=== PATIENT | female | born 1985 ===

== ENCOUNTER 2019-03-19 14:41 | Outpatient (CLI) | payer OTHER ==
[~2019-03-19] VITALS: Ht 162.6 cm; Wt 59.9 kg
== END 2019-03-19 15:00 | disposition home or self-care (01) ==
LOC: OFIC 805 14:41
DX: K21.0 Gastro-esophageal reflux disease with esophagitis (principal); M54.2 Cervicalgia

== ENCOUNTER 2020-06-22 20:21 | Emergency (ER) | payer OTHER ==
[~2020-06-22] VITALS: Ht 162.6 cm; Wt 61.2 kg
== END 2020-06-22 22:20 | disposition home or self-care (01) ==
LOC: ER 20:21
DX: M54.2 Cervicalgia (principal); M54.89 Other dorsalgia; M54.5 Low back pain

== ENCOUNTER 2024-07-07 13:26 | Outpatient (CLI) | payer OTHER | END 2024-07-07 13:27 | disposition home or self-care (01) | LOC: PRENATAL 13:26 | PROVIDERS: ATTEND Obstetrics & Gynecology Maternal & Fetal Medicine | DX: O36.80X0 Pregnancy with inconclusive fetal viability, not applicable or unspecified (principal); Z36.82 Encounter for antenatal screening for nuchal translucency; O99.891 Other specified diseases and conditions complicating pregnancy; O99.019 Anemia complicating pregnancy, unspecified trimester; O09.529 Supervision of elderly multigravida, unspecified trimester; Z14.8 Genetic carrier of other disease; Z3A.12 12 weeks gestation of pregnancy ==

== ENCOUNTER 2024-08-31 08:09 | Outpatient (CLI) | payer OTHER | END 2024-08-31 08:11 | disposition home or self-care (01) | LOC: PRENATAL 08:09 | PROVIDERS: ATTEND Obstetrics & Gynecology Maternal & Fetal Medicine | DX: O44.00 Complete placenta previa NOS or without hemorrhage, unspecified trimester (principal); O09.529 Supervision of elderly multigravida, unspecified trimester; Z3A.19 19 weeks gestation of pregnancy ==

== ENCOUNTER → 2024-11-25 07:15 | Outpatient (CLI) | payer OTHER | END | disposition home or self-care (01) | LOC: PRENATAL 07:15 | PROVIDERS: ATTEND Obstetrics & Gynecology Maternal & Fetal Medicine | DX: O26.849 Uterine size-date discrepancy, unspecified trimester (principal); O36.8199 Decreased fetal movements, unspecified trimester, other fetus; O99.019 Anemia complicating pregnancy, unspecified trimester; O09.529 Supervision of elderly multigravida, unspecified trimester; Z3A.32 32 weeks gestation of pregnancy ==

== ENCOUNTER 2025-01-05 14:45 | Inpatient (IN) | payer OTHER ==
[~2025-01-05] VITALS: Ht 162.6 cm; Wt 3.2 kg
[2025-01-05 15:49] LABS: HEMATOCRIT 42.3 % (36.0-45.00); HEMOGLOBIN 14.4 g/dL (12.0-15.00); MEAN CELL VOLUME 94.4 fL (80.00-100.00); MEAN CORPUSCULAR HEMOGLOBIN 32.2 pg (27.00-32.0); MEAN CORPUSCULAR HGB CONC 34.1 g/dl (32.0-36.0); RED BLOOD COUNT 4.48 M/uL (4.00-6.00)
[2025-01-05 15:58] LABS: PLATELET COUNT 112 K/uL (150-450)
[2025-01-05 16:11] LABS: INR < 0.93; PARTIAL THROMBOPLASTIN TIME 27.3 SECONDS (22.0-34.0); PROTHROMBIN TIME 9.9 SECONDS (9.0-11.5)
[2025-01-05 16:15] LABS: PH,URINE 6.5 (5.0-8.0); URINE APPEARANCE Clear; URINE BACTERIA 12.2 uL (0.0-1933); URINE BILIRRUBIN Negative (NEGATIVE); URINE BLOOD Negative; URINE COLOR Yellow; URINE EPITHELIAL CELLS 27.6 uL (0.0-38.8); URINE KETONE Negative (NEGATIVE); URINE LEUKOCYTE Negative; URINE NITRATE Negative; URINE PROTEIN Negative (NEGATIVE); URINE RBC 5.3 uL (0.0-20.8); URINE WBC 3.6 uL (0.0-23.2)
[2025-01-05 16:15] LABS: ALBUMIN 2.8 gm/dL (3.4-5.0); BILIRUBIN TOTAL 0.42 mg/dL (0.3-1.2); CALCIUM 8.6 mg/dL (8.5-10.1); CREATININE SERUM 0.59 mg/dL (0.55-1.02); GFR 112.89; GLOBULINA 3.3 G/DL (2.4-3.5); POTASSIUM 3.78 mEq/L (3.5-5.1); TOTAL PROTEIN 6.1 gm/dL (6.4-8.2)
[2025-01-05 16:29] LABS: URINE GLUCOSE 250 MG/DL (NEGATIVE)
[2025-01-18 12:25] VITALS: BP 122/80
[2025-01-18] MEDS ORDERED: PRENATAL TABLE1 EAC1 PO (12:51)
[2025-01-18] MEDS ORDERED: DESMOPRESSIN ACETATE 20 MCG in 0.9 % SODIUM CHLORIDE 50 ML IV NR (14:00)
[2025-01-18] MEDS ORDERED: RINGERS SOLUTION,LACTATED 1,000 ML IV SCH (14:00)
[2025-01-18] MEDS ORDERED: CEFAZOLIN SODIUM 1,000 MG VIAL IV SCH (14:00)
[2025-01-18 14:37] LABS: HEMATOCRIT 42.7 % (36.0-45.00); HEMOGLOBIN 14.6 g/dL (12.0-15.00); MEAN CELL VOLUME 93.5 fL (80.00-100.00); MEAN CORPUSCULAR HGB CONC 34.3 g/dl (32.0-36.0); RED BLOOD COUNT 4.57 M/uL (4.00-6.00)
[2025-01-18 14:51] LABS: INR < 0.93; PARTIAL THROMBOPLASTIN TIME 27.9 SECONDS (22.0-34.0)
[2025-01-18 15:10] VITALS: BP 110/73
[2025-01-18 15:12] LABS: PLATELET COUNT 127 K/uL (150-450)
[2025-01-18] MEDS ORDERED: OXYTOCIN 10 UNITS/ML VIAL ONE ×3 (17:52→21:48)
[2025-01-18] MEDS ORDERED: ERYTHROMYCIN BASE OPHT 1GM EACH TUBE OP ONE (17:53)
[2025-01-18 18:26] VITALS: BP 105/68
[2025-01-18] MEDS ORDERED: MORPHINE SULFATE 4 MG/ML CARTRIDGE IV PRN (20:30)
[2025-01-18] MEDS ORDERED: MORPHINE SULFATE 4 MG/ML VIAL IV ONE (20:40)
[2025-01-18] MEDS ORDERED: OXYTOCIN 1,000 ML IV SCH (21:00)
[2025-01-18 22:17] VITALS: BP 110/69
[2025-01-19] VITALS: BP 108/74
[2025-01-19] MEDS ORDERED: OxyCODONE HCL/APAP UD (PERCOCET) PO SCH (06:00)
[2025-01-19 06:14] LABS: HEMATOCRIT 37.1 % (36.0-45.00); HEMOGLOBIN 12.3 g/dL (12.0-15.00); MEAN CELL VOLUME 95.7 fL (80.00-100.00); MEAN CORPUSCULAR HEMOGLOBIN 31.7 pg (27.00-32.0); MEAN CORPUSCULAR HGB CONC 33.1 g/dl (32.0-36.0); RED BLOOD COUNT 3.88 M/uL (4.00-6.00); RED CELL DISTRIBUTION WIDTH 13.9 % (11.5-14.5)
[2025-01-19 06:24] LABS: PLATELET COUNT 116 K/uL (150-450)
[2025-01-19] MEDS ORDERED: ACETAMINOPHEN 325 MG TABLET PO PRN (07:45)
[2025-01-19] MEDS ORDERED: OxyCODONE HCL 5 MG TABLET (ROXICODONE) PO PRN (07:45)
[2025-01-19 08:18] VITALS: BP 108/70
[2025-01-19] MEDS ORDERED: SIMETHICONE 125 MG CAPSULE PO SCH (09:00)
[2025-01-19] MEDS ORDERED: DOCUSATE SODIUM 100MG CAP PO SCH (09:00)
[2025-01-19] MEDS ORDERED: PNV,CALCIUM 72/IRON/FOLIC ACID 1 TAB TABLET PO SCH (09:00)
[2025-01-19 16:00] VITALS: BP 110/74
[2025-01-19] MEDS ORDERED: IBUprofen 800 MG TABLET PO PRN (21:30)
[2025-01-20] VITALS: BP 130/75
[2025-01-20 06:51] LABS: HEMATOCRIT 33.6 % (36.0-45.00); HEMOGLOBIN 11.3 g/dL (12.0-15.00); MEAN CELL VOLUME 94.3 fL (80.00-100.00); MEAN CORPUSCULAR HEMOGLOBIN 31.7 pg (27.00-32.0); MEAN CORPUSCULAR HGB CONC 33.6 g/dl (32.0-36.0); RED BLOOD COUNT 3.56 M/uL (4.00-6.00)
[2025-01-20 06:55] LABS: PLATELET COUNT 115 K/uL (150-450)
[2025-01-20] MEDS ORDERED: COLACE100 MG PO (08:05)
[2025-01-20] MEDS ORDERED: IBU800 MG PO (08:06)
[2025-01-20] MEDS ORDERED: SIMETHICONE125 M1 PO (08:06)
[2025-01-20 09:19] VITALS: BP 127/94
== END 2025-01-20 12:09 | disposition home or self-care (01) | DRG 787 ==
LOC: LDR 01-18 12:06 → OB/GYN 01-18 20:21
PROVIDERS: Obstetrics & Gynecology; ADMIT Student in an Organized Health Care Education/Training Program; ATTEND Student in an Organized Health Care Education/Training Program
PROC: 4A1HXCZ Monitoring of Products of Conception, Cardiac Rate, External Approach (ICD-10-PCS; 2025-01-18)
PROC: 10D00Z1 Extraction of Products of Conception, Low, Open Approach (ICD-10-PCS; principal; 2025-01-18 17:00)
DX: O99.12 Other diseases of the blood and blood-forming organs and certain disorders involving the immune mechanism complicating childbirth (principal); D68.01 Von Willebrand disease, type 1; Z3A.39 39 weeks gestation of pregnancy; Z37.0 Single live birth